=== PATIENT | female | born 1945 | race Caucasian/White ===

== ENCOUNTER 2016-11-10 11:58 | Inpatient (IN) | payer OTHER ==
[~2016-11-10] VITALS: Ht 160 cm; Wt 75.2 kg
--- NOTE | ~2016-11-10 | S ---
[facility] [place] [address] SURGICAL PATH RPT PROCEDURE Name: SHANNAN HENDRIX Room #: 420-P [facility] IN M.R.#: [id number] Admission: 11/10/16 Date of : 47 Discharge: 11/15/16 Report #: [id number] Path Case #: [id number] PATHOLOGY REPORT COLLECTION DATE: 11/13/2016 RECEIVED DATE: 11/15/2016 SUBMITTING PHYS: Dr. Balta Castaneda OTHER PHYS: Dr. Christiano Olsen SPECIMEN(S) RECEIVED: A.Descending colon polyp B.Polyp at descending colon x3 * * * * * * * * * * * * FINAL DIAGNOSIS: A. Polyp, descending colon polyp, endoscopic biopsy: - Tubular adenoma. - Negative for high grade dysplasia. B. Polyps x 3, descending colon polyp, endoscopic biopsy: - Vegetable material. - No intact epithelial elements or colonic mucosa present. PATHOLOGIST: Marietta Jay M.D. REPORT ELECTRONICALLY SIGNED BY: Marietta Jay M.D. DATE/TIME: 11/16/2016 14:51 * * * * * * * * * * * * GROSS PATHOLOGY: A. Received in formalin labeled "Shannan Hendrix, descending colon polyp," are 2 segments of lopez soft tissue measuring 0.5 x 0.3 x 0.2 cm in aggregate dimensions and ranging from 0.2 to 0.3 cm in maximum dimension. The specimen is submitted entirely in cassette A1. B. Received in formalin labeled "Shannan Hendrix, polyps in descending colon," are 4 segments of green to yellow soft tissue measuring 0.7 x 0.1 x 0.1 cm in aggregate dimensions and ranging from 0.1 to 0.2 cm in maximum dimension. The specimen is submitted entirely in cassette B1. (CARLENE; 11/15/2016) CLINICAL HISTORY: Anemia INITIAL CPT CODE(S): A; 45177 B; 15275 [address] [place] [address] SURGICAL PATH RPT PROCEDURE Name: SHANNAN HENDRIX Room #: 420-P [facility] IN M.R.#: [id number] Admission: 11/10/16 Date of : 47 Discharge: 11/15/16 Report #: [id number] Path Case #: [id number] [facility] [address] [facility] [facility] [place] [address] Technical services performed by [facility] at [address] [place] [address], [address], [place] [address]. [facility] [place] [address] PHONE: [phone] DIRECTOR: Marv Miller M.D. * * * END OF REPORT * * *
--- NOTE | ~2016-11-10 | EKG ---
[address] [address] ELECTROCARDIOGRAM REPORT Name: AMBAR BLAKE Room #: 420-P ADM IN M.R.#: [id number] Admission: 11/10/16 Attend Phys: Christiano Olsen MD Discharge: Date of : 47 Report #: [id number] THIS REPORT FOR: //name// [facility] ED Test Date: 2016-11-10 Test Time: 14:23:27 Pat Name: AMBAR BLAKE Department: Room: [facility] Gender: F Clerk General: Myriam Gandara : 1945 Requested By: Rishi Kamara Order Number: [id number] MD: Carroll Gray Measurements Intervals [place] Rate: 74 P: 42 [place]: 159 QRS: -1 QRSD: 94 T: 27 QT: 416 QTc: 462 Interpretive Statements Sinus rhythm Atrial premature complex Inferior infarct, old Compared to ECG 01/18/2016 15:38:59 Atrial premature complex(es) now present Electronically Signed On 11-12-2016 7:55:55 CDT by Carroll Gray [email or web address] <ELECTRONICALLY SIGNED> By: Carroll Gray MD, [facility] 11/12/16 0755 1423 1423 Carroll Gray MD, [facility] /EPI
--- NOTE | ~2016-11-10 | P ---
[facility] [place] [address] PROCEDURE REPORT Name: AMBAR BLAKE Room #: 420-P ADM IN M.R.#: [id number] Admission: 11/10/16 Attend Phys: Christiano Olsen MD Discharge: Date of : 47 Report #: [id number] THIS REPORT FOR: //name// CC: DEANDRE physician/PCP Christiano Olsen DATE OF SERVICE: 11/13/2016 PROCEDURE PERFORMED: Colonoscopy at [facility] on 11/13/2016. 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 EGD was performed that showed antral erosions and a hiatal hernia and a colonoscopy was recommended. DESCRIPTION OF PROCEDURE: The patient was placed in left lateral decubitus position. Propofol was used for anesthesia. Please see anesthesiologist's report. The patient's ASA classification and amount of sedative. The adult colonoscope was then introduced through the rectum and advanced all the way to the terminal ileum. There was no bleeding found throughout the procedure, but terminal ileum appeared normal. The prep quality was good. There were three 2 to 5 mm polyps in the descending colon that were sessile and removed with a combination of biopsy forceps and cold snare polypectomy. There were medium sized internal hemorrhoids found on retroflexion and the procedure was then ended. RECOMMENDATIONS: Await pathology report and repeat colonoscopy for polyp surveillance in 3 years if her overall health is good and to proceed with an M2 capsule endoscopy as no source of melena has been identified on upper endoscopy or colonoscopy. This can be arranged as an outpatient. <ELECTRONICALLY SIGNED> By: Balta Castaneda MD 11/14/16 0832 0946 1944 Balta Castaneda MD /nt
--- NOTE | ~2016-11-10 | S ---
[facility] [place] [address] SURGICAL PATH RPT PROCEDURE Name: SHANNAN HENDRIX Room #: 420-P [facility] IN M.R.#: [id number] Admission: 11/10/16 Date of : 47 Discharge: 11/15/16 Report #: [id number] Path Case #: [id number] PATHOLOGY REPORT COLLECTION DATE: 11/10/2016 RECEIVED DATE: 11/15/2016 SUBMITTING PHYS: Dr. Rishi Kamara OTHER PHYS: SPECIMEN(S) RECEIVED: A.Peripheral smear * * * * * * * * * * * * FINAL DIAGNOSIS: Peripheral blood with severe microcytic, normochromic anemia, relative neutrophilia, lymphocytopenia and monocytosis. Please see comment. COMMENT: The peripheral blood shows severe microcytic normochromic anemia with mild anisopoikilocytosis including occasional microcytic forms, rare tear drop cells and elliptocytes. There is mild increase in polychromatophilic cells noted. Schistocytes or morphologic evidence of hemolytic process are not identified. This finding suggests an iron deficiency anemia or possibly anemia of chronic disease. An iron study to include serum iron, percent saturation, TIBC and ferritin are suggested for more definite classification of the etiology of the anemia. There is also relative neutrophilia and monocytosis, which may be secondary to a reactive process as such as seen in inflammatory / infectious etiology. Correlation witih clinical findings is recommended. PATHOLOGIST: Janett Bernabe M.D. REPORT ELECTRONICALLY SIGNED BY: Janett Bernabe M.D. DATE/TIME: 11/15/2016 23:52 * * * * * * * * * * * * MICROSCOPIC DESCRIPTION: CBC Data (11/10/16): WBC 5.7, RBC 2.59, hemoglobin 6.2, hematocrit 19.9, MCV 76.7, RDW 16.7%, platelet count 277,000. White blood cell count differential: 75% segs, 12% lymphs, 11% monos, 1% eos, 1% basophils. Peripheral Blood: Red blood cells are normochromic with mild anisopoikilocytosis including occasional microcytic and macrocytic forms and rare tear drop cells as well as elliptocytes. There is mild increase in polychromatophilic cells identified. There are no schistocytes or [address] [address] SURGICAL PATH RPT PROCEDURE Name: HAYDENSHANNAN Room #: 420-P [facility] IN M.R.#: [id number] Admission: 11/10/16 Date of : 47 Discharge: 11/15/16 Report #: [id number] Path Case #: [id number] morphologic evidence of hemolytic process identified. Platelets are normal in number and morphology. White blood cells are normal in number with predominance to mature segmented neutrophils. There are no circulating blasts or myeloid left shift identified. There is monocytosis noted. The lymphocytes are relatively decreased and are mostly small and mature. (MITA:david; d/t: 11/15/2016) GROSS PATHOLOGY: Received are two Smiley stained smears, labeled, Shannan Hendrix. CLINICAL HISTORY: The patient is a 71-year-old female with peripheral smear submitted for review at the request of Dr. Rishi Kamara. INITIAL CPT CODE(S): 22492 Professional services performed by [facility] at [facility], [address] [place] [address]. Technical services performed by [facility] at [address] [place] [address], [address], [place] [address]. [facility] [address] [place] [address] PHONE: [phone] DIRECTOR: Marv Miller M.D. * * * END OF REPORT * * *
--- NOTE | ~2016-11-10 | P ---
[facility] [place] [address] PROCEDURE REPORT Name: SHANNAN BLAKE Room #: 420-P ADM IN M.R.#: [id number] Admission: 11/10/16 Attend Phys: Christiano Olsen MD Discharge: Date of : 47 Report #: [id number] THIS REPORT FOR: //name// CC: DEANDRE physician/PCP Christiano Olsen MD DATE OF SERVICE: 11/11/2016 PATIENT OF: Dr. Olsen. PROCEDURE: Diagnostic EGD. INDICATION FOR PROCEDURE: Evaluate history of melena for the past 2 weeks. She has had heme-negative stool times 1 in the hospital, she has a severe iron deficiency anemia. The patient also has a history of multiple myeloma that has been refractory to therapy, breast cancer, a parotid cancer, and she has an acoustic schwannoma. Informed consent for this procedure was obtained prior to the administration of any medication. The risks of the procedure, which include bleeding, perforation, infection, complications of sedation and the possibility I could miss something have been explained to the patient and she has indicated her consent by signing. Propofol was slowly titrated before and during this procedure for the patient comfort by the anesthesia service. The [employer] upper videoscope was introduced through the upper esophageal sphincter and advanced under direct visualization to the second portion of the duodenum. Findings noted on withdrawal of the scope. The duodenal mucosa appears normal throughout its entirety. Pylorus, normal mucosa. Antrum, there are some linear erosions in the antrum of the stomach of uncertain etiology. They are nonbleeding and they may have been the source of some minor blood loss, but do not appear to be significant. Body, normal mucosa. Cardia and fundus, normal mucosa. There are a few scattered small benign appearing nodules that I think are just hyperplastic tissue in the stomach. I did not biopsy these because they look completely benign. Retroflex view reveals a hiatal hernia. The scope was withdrawn into the esophagus. The esophageal mucosa appears normal throughout its entirety. The scope was withdrawn. The patient went to the recovery area in stable condition. She tolerated the procedure well. IMPRESSION: 1. Antral erosions. 2. Hiatal hernia. RECOMMENDATION: My recommendations were to check a stool for H. pylori antigen. [address] [address] PROCEDURE REPORT Name: SHANNAN BLAKE Room #: 420-P [facility] IN .R.#: [id number] Admission: 11/10/16 Attend Phys: Christiano Olsen MD Discharge: Date of : 47 Report #: [id number] If her stools are heme positive at some point, then I would reconsider a repeat colonoscopy, her last one was at [place] [facility] in 2014 and apparently a small "tear" was found in her colon that was cauterized, that was done for rectal bleeding. We will send 2 more stools for occult blood and monitor her H and H and transfuse as needed. She has also been having bright red blood per vagina of uncertain etiology. Thank you very much once again for allowing me to participate in her care, Dr. Olsen. <ELECTRONICALLY SIGNED> By: Shannan Thomas DO 11/11/16 2212 1215 1814 Shannan Thomas DO /nt
[2016-11-10 11:58] VITALS: BP 114/63
[~2016-11-10 11:58] MED LIST: ACCUNEB SO1.25 MG/1 INH; ACYCLOVIR 400400 MG PO; ALBUTEROL2.5 MG/0.5 INH; AMITRIPTYLINE H25 M2 PO; ANASTROZOLE1 MG PO; APAP500 PO; AROMASIN25 MG PO; B-121000 MCG PO; B-12500 MCG PO; BACTRIM DS TAB1 EACH PO; CALCIUM 600 +1 EAC1 PO; CALCIUM 600 +1 EAC5 PO; CARAFATE1 GM/10 ML PO; CELEBREX100 MG/1 C PO; CENTRUM SILVER1 EAC4 PO; CLARITIN10 M2 PO; COLESTID1 GM PO; COMPAZINE25 MG RECTAL; COUMADIN 2.5MG2.5 M1 PO; COUMADIN 5 MG TA5 M1 PO; COUMADIN PO; CYCLOBENZAPRINE5 MG PO; CYCLOPHOSPHAMID50 M1 PO; CYMBALTA60 MG PO; CYTOXAN PO; DARZALEX100 MG/5 M IV; DESYREL50 MG PO; DEXAMETHAS10 MG/1 M1 IV; DEXAMETHASONE; DEXAMETHASONE 44 M1 PO; DEXAMETHASONE4 MG PO; EMLA CREAM; FERROUS SULFAT325 M1 PO; FLONASE 0.05%50 MCG INH; FLONASE 0.05%50 MCG NASAL; FLORANEX TABLE1 EACH PO; FOLIC ACID1 MG PO; HYDROCHLOROTH12.5 M1 PO; KLOR-CON 1010 MEQ PO; LEVAQUIN 500 M500 MG PO; LIDODERM 5%1 PATC1 TRANSDERM; LISINOPRIL20 MG PO; LOMOTIL TABLET1 EACH PO; LOPERAMIDE 2 MG2 M1 PO; LORATIDINE 10 M10 M1 PO; LUBRICANT EYE1 EACH OP; MAGNESIUM250 M1 PO; MELATONIN3 MG PO; NUCYNTA ER50 MG PO; NUCYNTA50 MG PO; ONDANSETRON HCL4 M2 PO; PAMELOR10 MG PO; PRILOSEC; PRILOSEC 20 MG20 MG PO; PRINIVIL20 MG PO; PROBIOTIC1 EAC1 PO; PROTONIX40 M1 PO; PROTONIX40 M4 PO; REVLIMID25 MG PO; REVLIMID5 MG PO; SYMBICORT80 MCG/4.1 INH; TORADOL 10 MG T10 MG PO; TRAZODONE HCL50 MG PO; TYLENOL325 MG PO; ULTRAM 50MG TAB50 MG PO; VALTREX 500 MG500 M1 PO; VALTREX 500 MG500 MG PO; VENTOLIN HFA 1818 GM INH; VENTOLIN HFA INH8 GM INH; ZOMETA 4 MG4 MG/5 M1 IV; [UNRECOGNIZED DRUG - OTHER] IV; [UNRECOGNIZED DRUG - OTHER] IV; [UNRECOGNIZED DRUG - OTHER] PO; toradol PO
[2016-11-10 12:55] LABS: ABSOLUTE NEUTROPHILS 4.3 thou/uL (1.4-8.2); BASOPHILS 1.1 % (0.0-2.0); EOSINOPHILS 1.1 % (0.0-3.0); LYMPHOCYTES 11.7 % (24.0-44.0); MANUAL DIFF NO; MCH 24.1 pg (26.0-34.0); MCHC 31.4 g/dL (28.0-37.0); MCV 76.7 fL (80.0-100.0); MONOCYTES 11.3 % (1.0-8.0); PLATELET COUNT 277 thou/uL (150-400); POLYS 74.8 % (36.0-66.0); RBC 2.59 mil/uL (4.20-5.00); RDW 16.7 % (10.5-14.5); WBC 5.7 thou/uL (4.0-11.0)
[2016-11-10 13:00] LABS: HEMATOCRIT 19.9 % (37.0-47.0); HEMOGLOBIN 6.2 gm/dL (12.0-15.0)
[2016-11-10 13:27] LABS: APTT 21.5 Seconds (24.5-32.8); PROTIME 10.1 Seconds (9.3-11.4)
[2016-11-10 13:45] LABS: ANION GAP 14 mmol/L (7-16); BUN 18 mg/dL (7-18); CALCIUM 8.2 mg/dL (8.5-10.1); CHLORIDE 105 mmol/L (98-107); CO2 19 mmol/L (21-32); CREATININE 1.4 mg/dL (0.6-1.0); GLUCOSE 107 mg/dL (74-106); POTASSIUM 3.5 mmol/L (3.5-5.1); SODIUM 138 mmol/L (136-145)
[2016-11-10 14:11] LABS: ALBUMIN 2.6 g/dL (3.4-5.0); ALKALINE PHOSPHATASE 60 U/L (46-116); CK-MB MASS 0.6 ng/mL (<0.5-3.6); MAGNESIUM 1.9 mg/dL (1.8-2.4); NT-PRO BRAIN NAT PEPTIDE 288 pg/mL (<300); SGOT 15 U/L (15-37); SGPT 14 U/L (30-65); TOTAL BILIRUBIN 0.3 mg/dL (<0.1-1.0); TOTAL PROTEIN 5.9 g/dL (6.4-8.2); TROPONIN-I < 0.04 ng/mL (<0.04-0.07)
[2016-11-10 14:12] VITALS: BP 92/45
[2016-11-10 16:10] VITALS: BP 113/66
[2016-11-10 16:32] LABS: URINE BILIRUBIN NEGATIVE (Negative); URINE BLOOD 1+ (Negative); URINE COLOR YELLOW; URINE GLUCOSE-RANDOM* NEGATIVE (Negative); URINE KETONES NEGATIVE (Negative); URINE LEUKOCYTES-REFLEX 1+ (Negative); URINE PROTEIN (DIPSTICK) TRACE (Negative); URINE UROBILINOGEN 0.2 E.U./dl (0.2-1.0)
[2016-11-10 16:53] LABS: CASTS None Seen /LPF (None Seen); CRYSTALS None Seen /LPF (None Seen); SQUAMOUS >10 Many /LPF (0-3); URINE RBC >20 Many /HPF (0-2); URINE WBC-REFLEX >25 Many /HPF (0-5)
[2016-11-10 17:41] LABS: % SATURATION 4 % (20-39); IRON 15 ug/dL (50-170); TIBC 410 ug/dL (250-450); UIBC 395 ug/dL
[2016-11-10 18:03] LABS: FOLIC ACID 14.7 ng/mL (8.6-58.9)
[2016-11-10 19:35] VITALS: BP 102/49
[2016-11-10 20:59] LABS: HEMOGLOBIN 5.4 gm/dL (12.0-15.0)
[2016-11-10 21:00] LABS: HEMATOCRIT 17.4 % (37.0-47.0)
[2016-11-10 22:11] VITALS: BP 106/59; BP 113/64
[2016-11-11] VITALS (7 sets, daily range): BP systolic 97–177; BP diastolic 46–80
[2016-11-11 04:43] LABS: HEMATOCRIT 20.5 % (37.0-47.0)
[2016-11-11 04:45] LABS: HEMOGLOBIN 6.7 gm/dL (12.0-15.0)
[2016-11-11 04:48] LABS: CALCIUM 7.6 mg/dL (8.5-10.1); CREATININE 1.1 mg/dL (0.6-1.0); POTASSIUM 3.6 mmol/L (3.5-5.1)
[2016-11-11 10:43] LABS: HEMATOCRIT 21.9 % (37.0-47.0); HEMOGLOBIN 7.1 gm/dL (12.0-15.0)
[2016-11-12 04:00] VITALS: BP 123/59
[2016-11-12 07:31] VITALS: BP 146/68
[2016-11-12 10:37] LABS: HEMOGLOBIN 9.3 gm/dL (12.0-15.0); MCH 27.4 pg (26.0-34.0); MCHC 33.1 g/dL (28.0-37.0); RBC 3.38 mil/uL (4.20-5.00); RDW 18.6 % (10.5-14.5); WBC 3.7 thou/uL (4.0-11.0)
[2016-11-12 10:39] LABS: MCV 82.9 fL (80.0-100.0)
[2016-11-12 15:28] VITALS: BP 150/88
[2016-11-12 20:00] VITALS: BP 140/59
[2016-11-13 04:30] VITALS: BP 147/73
[2016-11-13 08:00] VITALS: BP 139/100
[2016-11-13 17:51] VITALS: BP 172/89
[2016-11-13 19:16] VITALS: BP 170/91
[2016-11-14 03:55] VITALS: BP 103/62
[2016-11-14 04:17] VITALS: BP 141/70
[2016-11-14 08:00] VITALS: BP 145/53
[2016-11-14 11:01] LABS: HEMATOCRIT 29.9 % (37.0-47.0); HEMOGLOBIN 9.8 gm/dL (12.0-15.0); MCH 27.2 pg (26.0-34.0); MCHC 32.8 g/dL (28.0-37.0); MCV 82.8 fL (80.0-100.0); RBC 3.61 mil/uL (4.20-5.00); RDW 20.2 % (10.5-14.5)
[2016-11-14 11:14] LABS: CALCIUM 8.8 mg/dL (8.5-10.1); CREATININE 1.2 mg/dL (0.6-1.0); POTASSIUM 3.2 mmol/L (3.5-5.1)
[2016-11-14 16:00] VITALS: BP 179/90
[2016-11-14 19:32] VITALS: BP 139/79
[2016-11-15 05:00] VITALS: BP 140/76
[2016-11-15 07:46] VITALS: BP 126/70
[2016-11-15 11:40] LABS: HEMATOCRIT 30.2 % (37.0-47.0); HEMOGLOBIN 10.2 gm/dL (12.0-15.0); MCH 27.5 pg (26.0-34.0); MCHC 33.8 g/dL (28.0-37.0); MCV 81.4 fL (80.0-100.0); RBC 3.71 mil/uL (4.20-5.00); RDW 20.4 % (10.5-14.5); WBC 3.3 thou/uL (4.0-11.0)
[2016-11-15] MEDS ORDERED: PROTONIX40 M4 PO (15:40)
[2016-11-15 15:54] VITALS: BP 126/70
== END 2016-11-15 16:17 | disposition home or self-care (01) | DRG 377 ==
LOC: ER 11:58 → EROBS 13:12 → 4E 13:12
PROVIDERS: Emergency Medicine; Internal Medicine; Internal Medicine Hematology & Oncology; Nurse Practitioner; Nurse Practitioner Acute Care
PROC: 30233N1 Transfusion of Nonautologous Red Blood Cells into Peripheral Vein, Percutaneous Approach (ICD-10-PCS; 2016-11-10)
PROC: 0DJ08ZZ Inspection of Upper Intestinal Tract, Via Natural or Artificial Opening Endoscopic (ICD-10-PCS; principal; 2016-11-11)
PROC: 0DBM8ZZ Excision of Descending Colon, Via Natural or Artificial Opening Endoscopic (ICD-10-PCS; 2016-11-13)
DX: K92.2 Gastrointestinal hemorrhage, unspecified (principal); E43 Unspecified severe protein-calorie malnutrition; N17.9 Acute kidney failure, unspecified; C90.00 Multiple myeloma not having achieved remission; N39.0 Urinary tract infection, site not specified; D62 Acute posthemorrhagic anemia; Z94.84 Stem cells transplant status; J45.909 Unspecified asthma, uncomplicated; F32.9 Major depressive disorder, single episode, unspecified; I95.9 Hypotension, unspecified; M79.7 Fibromyalgia; D50.9 Iron deficiency anemia, unspecified; K63.5 Polyp of colon; K64.8 Other hemorrhoids; K44.9 Diaphragmatic hernia without obstruction or gangrene; C07 Malignant neoplasm of parotid gland; N93.9 Abnormal uterine and vaginal bleeding, unspecified; Z90.49 Acquired absence of other specified parts of digestive tract; Z90.12 Acquired absence of left breast and nipple; Z98.818 Other dental procedure status; Z88.8 Allergy status to other drugs, medicaments and biological substances; Z88.6 Allergy status to analgesic agent; Z91.041 Radiographic dye allergy status; Z91.040 Latex allergy status; Z88.0 Allergy status to penicillin; Z91.013 Allergy to seafood; Z80.9 Family history of malignant neoplasm, unspecified; Z86.14 Personal history of Methicillin resistant Staphylococcus aureus infection; Z79.899 Other long term (current) drug therapy; Z86.718 Personal history of other venous thrombosis and embolism; Z68.29 Body mass index [BMI] 29.0-29.9, adult
CPT/HCPCS: 10084; 62110; 62900; 70005

== ENCOUNTER → 2017-12-30 | Outpatient (CLI) | payer OTHER ==
[~2017-12-30] MED LIST changes: +ALLOPURINOL 10100 M1 PO; +AZO BLADDER CO300 MG PO; +BENADRYL25 MG PO; +COLESTIPOL HCL1 G1 PO; +DIFLUCAN200 MG PO; +ERGOCALCIF50000 UNIT PO; +IRON325 PO; +LEVAQUIN 750 M750 MG PO; +OXYBUTYNIN 5 MG5 M2 PO; +OXYCODONE HCL 55 MG PO; +SYMBICORT160 MCG/4. INH; +VOLTAREN GEL 1100 G2 TOP; +ZANTAC 150MG T150 MG PO
[2017-12-30 10:26] VITALS: BP 93/43; BP 93/54
[2017-12-30 12:46] VITALS: BP 91/54; BP 93/43; BP 97/52
[2017-12-30 15:40] LABS: HEMATOCRIT 23.5 % (37.0-47.0); HEMOGLOBIN 8.2 gm/dL (12.0-15.0)
[2017-12-30 15:41] LABS: MCH 31.6 pg (26.0-34.0); MCHC 35.1 g/dL (28.0-37.0); MCV 90.1 fL (80.0-100.0); RBC 2.6 mil/uL (4.20-5.00); RDW 16.8 % (10.5-14.5)
[2017-12-30 15:48] LABS: WBC 0.4 thou/uL (4.0-11.0)
== END ==
LOC: OPONC 06:40
PROVIDERS: Internal Medicine Hematology & Oncology
DX: C90.00 Multiple myeloma not having achieved remission (principal); D61.810 Antineoplastic chemotherapy induced pancytopenia; T45.1X5A Adverse effect of antineoplastic and immunosuppressive drugs, initial encounter
CPT/HCPCS: 91030